=== PATIENT | female | born 1960 | race Caucasian/White ===

== ENCOUNTER 2024-11-29 10:20 | Outpatient (CLI) | payer BC | END 2024-11-29 10:21 | disposition home or self-care (01) | LOC: BICMAMMO 10:20 | DX: Z12.31 Encounter for screening mammogram for malignant neoplasm of breast (principal); Z80.3 Family history of malignant neoplasm of breast | CPT/HCPCS: 77063; 77067 ==

== ENCOUNTER 2024-12-20 08:02 | Outpatient (CLI) | payer BC | END 2024-12-20 08:03 | disposition home or self-care (01) | LOC: BICMAMMO 08:02 | PROVIDERS: ATTEND Nurse Practitioner Adult Health | DX: Z13.820 Encounter for screening for osteoporosis (principal); M85.852 Other specified disorders of bone density and structure, left thigh | CPT/HCPCS: 77080 ==

== ENCOUNTER 2025-03-08 08:01 | Outpatient (CLI) | payer BC | END 2025-03-08 08:02 | disposition home or self-care (01) | LOC: BICCT 08:01 | PROVIDERS: ATTEND Otolaryngology Plastic Surgery within the Head & Neck | DX: J32.0 Chronic maxillary sinusitis (principal) ==